=== PATIENT | female | born 1955 | race Caucasian/White ===

== ENCOUNTER 2019-09-30 09:22 | Emergency (ER) | payer OTHER ==
[~2019-09-30] VITALS: Ht 160 cm; Wt 63.1 kg
[~2019-09-30 09:22] MED LIST: ATORVASTATIN PO
[2019-09-30] MEDS ORDERED: ALPR0.25 PO (09:51)
[2019-09-30] MEDS ORDERED: PANT40TA5 PO (09:51)
[2019-09-30] MEDS ORDERED: ROPI0.254 PO (09:51)
[2019-09-30] MEDS ORDERED: PROM25SU35 PR (09:51)
--- NOTE | 2019-09-30 09:55 | NUR ---
PT AMBULATORY TO ROOM, STEADY GAIT. VSS, PT CALM AND COOPERATIVE. SIGNIFICANT OTHER AT BEDSIDE. ERP TO BEDSIDE. PT UPDATED ON POC. WILL CONTINUE TO MONITOR AND WATCH FOR ORDERS.
[2019-09-30] MEDS ORDERED: SODIUM CHLORIDE FLUSH 10ML SYR IVF ONE (10:00)
--- NOTE | 2019-09-30 10:08 | NUR ---
PT AMBULATORY TO BATHROOM, IV STARTED, LABS DRAWN, PT TOLERATED WELL. PT PROVIDED WARM BLANKET, CALL LIGHT WITHIN REACH, ALL NEEDS MET AT THIS TIME.
[2019-09-30 10:09] LABS: MICROSCOPIC NOT IND
[2019-09-30 10:15] LABS: BASOPHILS # (AUTO) 0.02 x10^3/uL (0-0.1); BASOPHILS % (AUTO) 0 % (0-1); EOSINOPHILS # (AUTO) 0.03 x10^3/uL (0-0.4); EOSINOPHILS % (AUTO) 0 % (1-7); LYMPHOCYTES # (AUTO) 1.56 x10^3/uL (1-3.4); LYMPHOCYTES % (AUTO) 21 % (22-44); MD NO; MEAN CORPUSCULAR HGB CONC 33.2 g/dL (32.4-35.8); MEAN CORPUSCULAR VOLUME 87.3 fL (80-100); MEAN PLATELET VOLUME 7.3 fL (7.4-10.4); MONOCYTES # (AUTO) 0.41 x10^3/uL (0.2-0.8); MONOCYTES % (AUTO) 5 % (2-9); NEUTROPHILS # (AUTO) 5.49 x10^3/uL (1.8-6.8); NEUTROPHILS % (AUTO) 73 % (42-75); PLATELET COUNT 344 x10^3/uL (130-400); RED BLOOD COUNT 5.37 x10^6/uL (3.82-5.3); RED CELL DISTRIBUTION WIDTH 15.7 % (9.6-15.2)
[2019-09-30 10:25] LABS: ALANINE AMINOTRANSFERASE 41 U/L (12-78); ALBUMIN 4.3 g/dL (3.4-5.0); ANION GAP 10 mmol/L (5-15); CALCIUM 9.6 mg/dL (8.5-10.1); CHLORIDE 109 mmol/L (98-107); CREATININE 1.15 mg/dL (0.55-1.02)
[2019-09-30 10:28] LABS: ALKALINE PHOSPHATASE 103 U/L (45-117); BILIRUBIN,TOTAL 0.5 mg/dL (0.2-1.0); TOTAL PROTEIN 7.8 g/dL (6.4-8.2)
[2019-09-30 10:37] LABS: CULTURE INDICATED? NO
[2019-09-30] MEDS ORDERED: ONDANSETRON 2MG/ML, 2ML ONE (10:48)
--- NOTE | 2019-09-30 10:57 | NUR ---
PT TO CT.
[2019-09-30] MEDS ORDERED: ONDANSETRON 2MG/ML, 2ML IVPush ONE (11:00)
[2019-09-30] MEDS ORDERED: OMNIPAQUE 350 MG/ML, 100ML BOTTLE ONE (11:18)
--- NOTE | 2019-09-30 11:29 | NUR ---
PT BACK FROM CT, LAYING IN BED, STATES RELIEF FROM NAUSEA, VSS, WILL CONITNUE TO MONITOR.
[2019-09-30 12:19] VITALS: BP 127/76
== END 2019-09-30 12:22 | disposition home or self-care (01) ==
LOC: ED 10:07
DX: K21.9 Gastro-esophageal reflux disease without esophagitis (principal); F41.1 Generalized anxiety disorder
CPT/HCPCS: 36415; 74177; 80053; 81003; 83690; 85025; 96374; 99285; J2405; Q9967